=== PATIENT | female | born 1940 | race Caucasian/White ===

== ENCOUNTER 2018-09-29 07:11 | Day surgery (SDC) | payer MEDICARE ==
[~2018-09-29 07:11] MED LIST: ATENOLOL25 MG PO; CEPHALEXIN500 M1 PO; LISINOP/HCTZ1 TA2 PO; METOCLOPRAM5 MG PO; ROBITUSSIN AC10 ML OR; SYNTHROID125 MCG PO; TAM75CAP OR; TENORMIN PO; WARFARIN2.5 MG PO; WARFARIN5 MG PO
[2018-09-29 09:53] VITALS: BP 149/82
== END 2018-09-29 09:50 | disposition home or self-care (01) ==
LOC: ENDO 07:11 → ORM 09:45 → ENDO 09:50 → ORM 10:05
PROVIDERS: ATTEND Surgery
PROC: 0DJ08ZZ Inspection of Upper Intestinal Tract, Via Natural or Artificial Opening Endoscopic (ICD-10-PCS; principal; 2018-09-29)
DX: R13.10 Dysphagia, unspecified (principal); K22.9 Disease of esophagus, unspecified; Q39.8 Other congenital malformations of esophagus; K29.40 Chronic atrophic gastritis without bleeding; K44.9 Diaphragmatic hernia without obstruction or gangrene; I48.91 Unspecified atrial fibrillation; I10 Essential (primary) hypertension; K21.9 Gastro-esophageal reflux disease without esophagitis; M35.00 Sjogren syndrome, unspecified; E03.9 Hypothyroidism, unspecified

== ENCOUNTER → 2018-10-06 | Outpatient (REF) | payer MEDICARE | END | disposition home or self-care (01) | LOC: LAB 09:04 | PROVIDERS: ATTEND Internal Medicine | DX: E03.9 Hypothyroidism, unspecified (principal) ==

== ENCOUNTER 2019-10-01 | Emergency (ER) | payer MEDICARE ==
[2019-10-01 20:30] LABS: HEMATOCRIT 32.1 % (37.0-47.0); HEMOGLOBIN 10.9 g/dl (12.0-16.0); IMMATURE GRANULOCYTES 0.4 % (0.0-5.0); MEAN CELL VOLUME 99.1 fL CALC (80.0-100.0); MEAN CORPUSCULAR HGB 33.6 pG CALC (26.0-32.0); NEUT# 1.32 thou/uL (2.00-7.15); RED BLOOD COUNT 3.24 mill/uL (4.20-5.60); RED CELL DISTRI WIDTH 12.2 % (11.5-15.5)
[2019-10-01] MEDS ORDERED: CBD SL (20:40)
[2019-10-01 21:21] LABS: INTERNATIONAL NORMALIZED RATIO 4.6 RATIO (0.7-1.3); PROTHROMBIN TIME 44.8 SECONDS (9.0-12.5)
[2019-10-01 21:39] LABS: ALBUMIN 4.2 g/dL (3.2-5.0); ALKALINE PHOSPHATASE 37 u/l (38-126); ANION GAP 11 (6-22 (CALC)); BILIRUBIN, TOTAL 0.5 mg/dL (0.0-1.4); BUN 17 mg/dL (8-23); BUN/CREATININE RATIO 31 (12-20 (CALC)); CARBON DIOXIDE 27 mmol/l (22-30); CHLORIDE 102 mmol/l (95-108); CREATININE 0.6 mg/dL (0.5-1.0); GFR > 60 ML/MIN (>=60 (CALC)); GFR FOR AFR.AMER. > 60 ML/MIN (>=60 (CALC)); POTASSIUM 3.9 mmol/l (3.5-5.1); SGOT/AST 49 u/l (9-36); SODIUM 137 mmol/l (137-146); TOTAL PROTEIN 7.7 g/dL (6.3-8.2)
== END 2019-10-01 23:15 ==
PROVIDERS: Emergency Medicine
DX: R55 Syncope and collapse (principal); I48.91 Unspecified atrial fibrillation; R79.1 Abnormal coagulation profile; T45.515A Adverse effect of anticoagulants, initial encounter; Z79.01 Long term (current) use of anticoagulants; D70.9 Neutropenia, unspecified

== ENCOUNTER 2019-11-05 | Emergency (ER) | payer MEDICARE ==
[~2019-11-05] MED LIST changes: +CBD SL
[2019-11-05 17:40] LABS: URINE BILIRUBIN - DIPSTICK NEGATIVE (NEGATIVE); URINE BLOOD DIPSTICK NEGATIVE (NEGATIVE); URINE COLOR YELLOW; URINE GLUCOSE - DIPSTICK NEGATIVE (NEGATIVE); URINE KETONE TRACE mg/dL (NEGATIVE); URINE LEUK ESTERASE TRACE (NEGATIVE); URINE NITRITE - DIPSTICK NEGATIVE (Negative); URINE PH 5.5 (4.5-8.0); URINE PROTEIN - DIPSTICK TRACE mg/dL (NEG-TRACE); URINE SPECIFIC GRAVITY 1.025
--- NOTE | 2019-11-11 12:38 | NUR ---
Notified patient of Negative Covid results. Advised patient to follow up with PCP or to come to ED for urgent needs. Advised patient to continue practicing Covid prevention including washing hands and to avoid contact with others. Patient verbalized understanding.
== END 2019-11-05 18:51 | disposition home or self-care (01) ==
PROVIDERS: Family Medicine
DX: R50.9 Fever, unspecified (principal); M32.9 Systemic lupus erythematosus, unspecified; I48.91 Unspecified atrial fibrillation; E03.9 Hypothyroidism, unspecified; Z20.828 Contact with and (suspected) exposure to other viral communicable diseases

== ENCOUNTER 2021-07-05 08:31 | Emergency (ER) | payer MEDICARE ==
[~2021-07-05] VITALS: Ht 165.1 cm; Wt 42.0 kg
[~2021-07-05 08:31] MED LIST changes: -WARFARIN2.5 MG PO
[2021-07-05] MEDS ORDERED: VITAMIN D320 MCG PO (08:58)
[2021-07-05] MEDS ORDERED: ZOFRAN4 MG/TAB PO (08:59)
[2021-07-05] MEDS ORDERED: PREDNISONE1 MG PO (09:00)
[2021-07-05] MEDS ORDERED: PROLIA60 MG/ML SC (09:00)
[2021-07-05] MEDS ORDERED: ULTRAM50 MG PO (09:01)
[2021-07-05 09:40] VITALS: BP 154/93
== END 2021-07-05 09:40 | disposition home or self-care (01) ==
LOC: ED 08:31
DX: M54.50 Low back pain, unspecified (principal); M62.830 Muscle spasm of back; I48.91 Unspecified atrial fibrillation; E03.9 Hypothyroidism, unspecified; M32.9 Systemic lupus erythematosus, unspecified

== ENCOUNTER 2021-10-26 10:26 | Emergency (ER) | payer MEDICARE ==
[2021-10-26] VITALS (10 sets, daily range): BP systolic 136–168; BP diastolic 88–102
[~2021-10-26] VITALS: Ht 165.1 cm; Wt 60.0 kg
[~2021-10-26 10:26] MED LIST changes: +PREDNISONE1 MG PO; +PROLIA60 MG/ML SC; +ULTRAM50 MG PO; +VITAMIN D320 MCG PO; +ZOFRAN4 MG/TAB PO
[2021-10-26 11:16] LABS: HEMATOCRIT 37.9 % (37.0-47.0); HEMOGLOBIN 12.8 g/dl (12.0-16.0); IMMATURE GRANULOCYTES 0.9 % (0.0-5.0); MEAN CELL VOLUME 105.6 fL CALC (80.0-100.0); MEAN CORPUSCULAR HGB 35.7 pG CALC (26.0-32.0); MEAN CORPUSCULAR HGB CONC 33.8 g/dL CAL (32.0-36.0); NEUT# 4.41 thou/uL (2.00-7.15); RED BLOOD COUNT 3.59 mill/uL (4.20-5.60)
[2021-10-26 11:27] LABS: ALBUMIN 4.5 g/dL (3.2-5.0); ALKALINE PHOSPHATASE 68 u/l (38-126); ANION GAP 13 (6-22 (CALC)); BILIRUBIN, TOTAL 0.8 mg/dL (0.0-1.4); BUN 15 mg/dL (8-23); BUN/CREATININE RATIO 31 (12-20 (CALC)); CARBON DIOXIDE 28 mmol/l (22-30); CHLORIDE 96 mmol/l (95-108); CREATININE 0.5 mg/dL (0.5-1.0); GFR > 60 ML/MIN (>=60 (CALC)); GFR FOR AFR.AMER. > 60 ML/MIN (>=60 (CALC)); SGOT/AST 36 u/l (9-36); SODIUM 133 mmol/l (137-146); TOTAL PROTEIN 8.2 g/dL (6.3-8.2)
[2021-10-26 11:29] LABS: ACT PARTIAL THROMBO TIME 30.6 SECONDS (20.0-32.5)
[2021-10-26 11:30] LABS: INTERNATIONAL NORMALIZED RATIO 1.8 RATIO (0.7-1.3); PROTHROMBIN TIME 17.8 SECONDS (9.0-12.5)
== END 2021-10-26 13:50 | disposition home or self-care (01) ==
LOC: ED 10:26
DX: S02.2XXA Fracture of nasal bones, initial encounter for closed fracture (principal); S00.12XA Contusion of left eyelid and periocular area, initial encounter; S00.11XA Contusion of right eyelid and periocular area, initial encounter; S51.812A Laceration without foreign body of left forearm, initial encounter; S41.112A Laceration without foreign body of left upper arm, initial encounter; I48.91 Unspecified atrial fibrillation; E03.9 Hypothyroidism, unspecified; M32.9 Systemic lupus erythematosus, unspecified; W01.0XXA Fall on same level from slipping, tripping and stumbling without subsequent striking against object, initial encounter; Y92.009 Unspecified place in unspecified non-institutional (private) residence as the place of occurrence of the external cause; Z79.01 Long term (current) use of anticoagulants

== ENCOUNTER 2021-10-28 07:59 | Emergency (ER) | payer MEDICARE ==
[2021-10-28] VITALS (10 sets, daily range): BP systolic 125–180; BP diastolic 89–109
[~2021-10-28] VITALS: Ht 165.1 cm; Wt 40.0 kg
[2021-10-28 09:37] LABS: HEMATOCRIT 39.6 % (37.0-47.0); HEMOGLOBIN 13.2 g/dl (12.0-16.0); IMMATURE GRANULOCYTES 0.2 % (0.0-5.0); MEAN CELL VOLUME 106.2 fL CALC (80.0-100.0); MEAN CORPUSCULAR HGB 35.4 pG CALC (26.0-32.0); MEAN CORPUSCULAR HGB CONC 33.3 g/dL CAL (32.0-36.0); NEUT# 6.92 thou/uL (2.00-7.15); RED BLOOD COUNT 3.73 mill/uL (4.20-5.60); RED CELL DISTRI WIDTH 11.7 % (11.5-15.5)
[2021-10-28 09:50] LABS: ALBUMIN 4.6 g/dL (3.2-5.0); ALKALINE PHOSPHATASE 63 u/l (38-126); ANION GAP 15 (6-22 (CALC)); BUN 20 mg/dL (8-23); BUN/CREATININE RATIO 47 (12-20 (CALC)); CARBON DIOXIDE 27 mmol/l (22-30); CHLORIDE 96 mmol/l (95-108); CREATININE 0.4 mg/dL (0.5-1.0); GFR > 60 ML/MIN (>=60 (CALC)); GFR FOR AFR.AMER. > 60 ML/MIN (>=60 (CALC)); POTASSIUM 4.2 mmol/l (3.5-5.1); SGOT/AST 32 u/l (9-36); SODIUM 134 mmol/l (137-146); TOTAL PROTEIN 8.5 g/dL (6.3-8.2)
[2021-10-28 09:57] LABS: INTERNATIONAL NORMALIZED RATIO 2.8 RATIO (0.7-1.3); PROTHROMBIN TIME 27.2 SECONDS (9.0-12.5)
[2021-10-28] MEDS ORDERED: TRAMADOL HYDROC50 M1 PO (11:28)
== END 2021-10-28 11:55 | disposition home or self-care (01) ==
LOC: ED 07:59
PROVIDERS: Family Medicine
DX: M54.6 Pain in thoracic spine (principal); M54.50 Low back pain, unspecified; S22.070D Wedge compression fracture of T9-T10 vertebra, subsequent encounter for fracture with routine healing; S22.080D Wedge compression fracture of T11-T12 vertebra, subsequent encounter for fracture with routine healing; S32.050D Wedge compression fracture of fifth lumbar vertebra, subsequent encounter for fracture with routine healing; I48.91 Unspecified atrial fibrillation; M32.9 Systemic lupus erythematosus, unspecified; E03.9 Hypothyroidism, unspecified; X58.XXXD Exposure to other specified factors, subsequent encounter; Z79.01 Long term (current) use of anticoagulants

== ENCOUNTER 2021-11-20 11:56 | Emergency (ER) | payer MEDICARE ==
[~2021-11-20] VITALS: Ht 165.1 cm; Wt 37.0 kg
[~2021-11-20 11:56] MED LIST changes: +TRAMADOL HYDROC50 M1 PO
[2021-11-20 12:13] VITALS: BP 122/82
[2021-11-20 12:30] VITALS: BP 123/81
[2021-11-20 12:40] LABS: MEAN CELL VOLUME 105.3 fL CALC (80.0-100.0); MEAN CORPUSCULAR HGB 34.7 pG CALC (26.0-32.0); MEAN CORPUSCULAR HGB CONC 32.9 g/dL CAL (32.0-36.0); NEUT# 2.18 thou/uL (2.00-7.15); RED BLOOD COUNT 3.23 mill/uL (4.20-5.60); RED CELL DISTRI WIDTH 11.9 % (11.5-15.5)
[2021-11-20 12:43] LABS: HEMOGLOBIN 11.2 g/dl (12.0-16.0)
[2021-11-20 12:52] LABS: ALBUMIN 3.9 g/dL (3.2-5.0); ALKALINE PHOSPHATASE 73 u/l (38-126); BILIRUBIN, TOTAL 0.6 mg/dL (0.0-1.4); BUN 21 mg/dL (8-23); BUN/CREATININE RATIO 49 (12-20 (CALC)); CARBON DIOXIDE 27 mmol/l (22-30); CHLORIDE 106 mmol/l (95-108); CREATININE 0.4 mg/dL (0.5-1.0); GFR > 60 ML/MIN (>=60 (CALC)); GFR FOR AFR.AMER. > 60 ML/MIN (>=60 (CALC)); POTASSIUM 3.4 mmol/l (3.5-5.1); SGOT/AST 28 u/l (9-36); TOTAL PROTEIN 7.1 g/dL (6.3-8.2)
[2021-11-20 12:54] LABS: ANION GAP 11 (6-22 (CALC)); SODIUM 141 mmol/l (137-146)
[2021-11-20 13:36] LABS: INTERNATIONAL NORMALIZED RATIO 14.5 RATIO (0.7-1.3); PROTHROMBIN TIME 127.8 SECONDS (9.0-12.5)
[2021-11-20 14:01] VITALS: BP 153/85
[2021-11-20 14:37] VITALS: BP 161/106
[2021-11-20 14:54] VITALS: BP 161/106
== END 2021-11-20 15:19 | disposition home or self-care (01) ==
LOC: ED 11:56
PROVIDERS: Family Medicine
DX: R79.1 Abnormal coagulation profile (principal); T45.515A Adverse effect of anticoagulants, initial encounter; I10 Essential (primary) hypertension; I48.91 Unspecified atrial fibrillation; E03.9 Hypothyroidism, unspecified; M32.9 Systemic lupus erythematosus, unspecified; Z51.81 Encounter for therapeutic drug level monitoring; Z79.01 Long term (current) use of anticoagulants

== ENCOUNTER 2022-07-11 19:05 | Emergency (ER) | payer MEDICARE ==
[2022-07-11] VITALS (8 sets, daily range): BP systolic 147–180; BP diastolic 89–112
[~2022-07-11] VITALS: Ht 165.1 cm; Wt 40.0 kg
[2022-07-11 19:42] LABS: HEMATOCRIT 33.2 % (37.0-47.0); HEMOGLOBIN 11.3 g/dl (12.0-16.0); IMMATURE GRANULOCYTES 0.1 % (0.0-5.0); MEAN CELL VOLUME 102.2 fL CALC (80.0-100.0); MEAN CORPUSCULAR HGB 34.8 pG CALC (26.0-32.0); NEUT# 6.76 thou/uL (2.00-7.15); RED BLOOD COUNT 3.25 mill/uL (4.20-5.60); RED CELL DISTRI WIDTH 13.9 % (11.5-15.5)
[2022-07-11 19:52] LABS: ALBUMIN 4.3 g/dL (3.2-5.0); ALKALINE PHOSPHATASE 50 u/l (38-126); ANION GAP 11 (6-22 (CALC)); BUN 22 mg/dL (8-23); BUN/CREATININE RATIO 41 (12-20 (CALC)); CARBON DIOXIDE 27 mmol/l (22-30); CHLORIDE 101 mmol/l (95-108); CREATININE 0.5 mg/dL (0.5-1.0); GFR FOR AFR.AMER. > 60 ML/MIN (>=60 (CALC)); GFR OTHER RACES > 60 ML/MIN (>=60 (CALC)); POTASSIUM 3.5 mmol/l (3.5-5.1); SGOT/AST 32 u/l (9-36); SODIUM 136 mmol/l (137-146); TOTAL PROTEIN 7.6 g/dL (6.3-8.2)
[2022-07-11 19:53] LABS: BILIRUBIN, TOTAL 0.8 mg/dL (0.0-1.4)
[2022-07-11 19:56] LABS: ACT PARTIAL THROMBO TIME 35.3 SECONDS (20.0-32.5); INTERNATIONAL NORMALIZED RATIO 2.3 RATIO (0.7-1.3)
[2022-07-11 20:16] LABS: URINE BILIRUBIN - DIPSTICK NEGATIVE (NEGATIVE); URINE BLOOD DIPSTICK TRACE-INTACT (NEGATIVE); URINE COLOR YELLOW; URINE GLUCOSE - DIPSTICK NEGATIVE (NEGATIVE); URINE KETONE NEGATIVE (NEGATIVE); URINE LEUK ESTERASE SMALL (NEGATIVE); URINE NITRITE - DIPSTICK POSITIVE (Negative); URINE PH 6.5 (4.5-8.0); URINE PROTEIN - DIPSTICK 30 mg/dL (NEG-TRACE); URINE SPECIFIC GRAVITY 1.015; URINE UROBILINOGEN - DIPSTICK 0.2 E.U./dL (0.2)
[2022-07-11 20:22] LABS: URINE BACTERIA MANY hpf; URINE RBC 0-2 RBC/hpf (0-5); URINE WBC 20-50 WBC/hpf (0-5)
[2022-07-11] MEDS ORDERED: BACTRIM DS1 TAB PO (20:57)
== END 2022-07-11 22:50 | disposition home or self-care (01) ==
LOC: ED 19:05
PROVIDERS: Family Medicine
DX: N39.0 Urinary tract infection, site not specified (principal); B96.20 Unspecified Escherichia coli [E. coli] as the cause of diseases classified elsewhere; E03.9 Hypothyroidism, unspecified; I48.91 Unspecified atrial fibrillation; M32.9 Systemic lupus erythematosus, unspecified; Z20.822 Contact with and (suspected) exposure to COVID-19

== ENCOUNTER 2022-10-03 14:09 | Emergency (ER) | payer MEDICARE ==
[~2022-10-03] VITALS: Ht 165.1 cm; Wt 49.1 kg
[~2022-10-03 14:09] MED LIST changes: +BACTRIM DS1 TAB PO
[2022-10-03 15:11] VITALS: BP 157/89
== END 2022-10-03 16:45 | disposition left against medical advice (07) ==
LOC: ED 14:09 → LWOBS 16:45
DX: Z53.21 Procedure and treatment not carried out due to patient leaving prior to being seen by health care provider (principal)